=== PATIENT | male | born 1950 | race Caucasian/White ===

== ENCOUNTER 2017-04-27 14:21 | Emergency (ER) | payer OTHER ==
[~2017-04-27] VITALS: Ht 190.5 cm; Wt 77.1 kg
[~2017-04-27 14:21] MED LIST: ALBU90OI INH; ALBU90OI6 INH; ALBU90OI61 INH; AMIT25; AMOCLA875 PO; AMOX500 PO; ASPI81EC PO; AZIT250 PO; Augmentin 875-1 EACH PO; BENZ100A PO; BP MED; Bactrim Ds Tab1 EACH PO; CLIN150 PO; CYCL10 PO; Cleocin HCl300 MG PO; DIAZ10; DIAZ5 PO; DOXY100 PO; Esgic Tablet1 EACH PO; FISH1000 PO; FLUT110OIA IH; HIGH BLOOD PRESSURE; HYDACE10B PO; HYDACE5 PO; HYDCHL25; HYDROCHLOROTHIAZIDE; IBUP400 PO; IBUP600 PO; IBUP800 PO; INHALERS; INSLIS75I; KETO10 PO; Keflex500 MG PO; LIDO2L MM; LISI20; LISI20 PO; LISI5 PO; METCAR500 PO; METH40; METH5 PO; METO25ER; METOPROLOL; MULVITMINF PO; NAPR500 PO; Norco 5-325 Ta1 EACH PO; OMEP20ER; OMEP20ER PO; OMEPRAZOLE MAGN20 MG PO; OXYACE5T PO; OXYC10ER PO; OXYC30 PO; OXYC5 PO; OXYCODONE HCL; Omeprazole20 M1 PO; PENVK500 PO; PRED20 PO; PROM25 PO; Percocet 5-3251 EACH PO; Prednisone20 MG PO; Prinivil10 MG PO; Prinivil5 MG PO; RXHYDACE PO; RXOXYACE PO; RXSULTRIDS PO; Robaxin500 MG PO; STOMACH PILL; SULTRIDS PO; TRAM50 PO; Ultram50 MG PO; Veetids 500500 MG PO; Zithromax250 MG PO; Zofran Odt4 MG PO; Zofran Odt4 MG SL; [UNRECOGNIZED DRUG - OTHER]; [UNRECOGNIZED DRUG - REMARK]; [UNRECOGNIZED DRUG - REMARK]
[2017-04-27] MEDS ORDERED: IBUP400 PO (17:05)
[2018-01-26] MEDS ORDERED: METH40 PO (12:43)
== END 2017-04-27 17:13 | disposition home or self-care (01) ==
LOC: ER 14:21
DX: S60.031A Contusion of right middle finger without damage to nail, initial encounter (principal); J44.9 Chronic obstructive pulmonary disease, unspecified; F17.210 Nicotine dependence, cigarettes, uncomplicated; V19.40XA Pedal cycle driver injured in collision with unspecified motor vehicles in traffic accident, initial encounter
CPT/HCPCS: 73130; 99283

== ENCOUNTER 2017-06-14 01:54 | Emergency (ER) | payer OTHER ==
[~2017-06-14] VITALS: Ht 190.5 cm; Wt 77.1 kg
[2017-06-14] MEDS ORDERED: CEPH500 PO (05:21)
== END 2017-06-14 05:28 | disposition home or self-care (01) ==
LOC: ER 01:54
DX: S81.011A Laceration without foreign body, right knee, initial encounter (principal); J44.9 Chronic obstructive pulmonary disease, unspecified; F17.210 Nicotine dependence, cigarettes, uncomplicated; V86.96XA Unspecified occupant of dirt bike or motor/cross bike injured in nontraffic accident, initial encounter
CPT/HCPCS: 73564; 99283

== ENCOUNTER 2017-11-13 18:44 | Emergency (ER) | payer OTHER ==
[~2017-11-13] VITALS: Ht 190.5 cm; Wt 80.7 kg
[~2017-11-13 18:44] MED LIST changes: +CEPH500 PO
[2017-11-13 23:28] LABS: BASOPHILS ABSOLUTE AUTO 0.05 K/mm3 (0.00-0.23); BASOPHILS PERCENT AUTO 1 % (0-2); EOSINOPHILS ABSOLUTE AUTO 0.07 K/mm3 (0.00-0.68); EOSINOPHILS PERCENT AUTO 1 % (0-6); Hematocrit 39.9 % (37.0-53.0); Hemoglobin 13.3 g/dL (13.5-17.5); IMMATURE GRAN ABSOLUTE AUTO 0.01 K/mm3 (0.00-0.10); IMMATURE GRAN PERCENT AUTO 0 % (0-1); LYMPHOCYTES PERCENT AUTO 31 % (21-46); MONOCYTES ABSOLUTE AUTO 0.97 K/mm3 (0.16-1.47); MONOCYTES PERCENT AUTO 14 % (4-13); Mean Corpuscular HGB 32.2 pg (26.0-34.0); Mean Corpuscular HGB Conc 33.3 g/dL (31.5-36.5); Mean Corpuscular Volume 97 fL (80-100); NEUTROPHILS ABSOLUTE AUTO 3.71 K/mm3 (1.96-9.15); NEUTROPHILS PERCENT AUTO 53 % (41-73); Platelet Count 204 K/mm3 (150-400); RDW Coefficient Variation 11.9 % (11.7-14.2); RDW Standard Deviation 42.6 fL (35.1-46.3); Red Blood Cell Count 4.13 M/mm3 (4.30-5.90); White Blood Cell Count 7.01 K/mm3 (4.00-11.30)
[2017-11-13 23:59] LABS: Alanine Aminotransfer (ALT/SGP 35 U/L (12-78); Albumin, Blood 3.3 g/dL (3.4-5.0); Albumin/Globulin Ratio 0.8 (0.8-1.8); Alk Phos 87 U/L (50-136); Anion Gap 7 mmol/L (6-16); Aspartate Aminotrans (AST/SGOT 31 U/L (12-37); Bilirubin, Total 0.7 mg/dL (0.1-1.0); Blood Urea Nitrogen 8 mg/dL (8-24); Bun/Creatinine Ratio 14.9 (12.0-20.0); CO2, Blood 27 mmol/L (21-32); Calcium, Blood 8.1 mg/dL (8.5-10.1); Chloride, Blood 100 mmol/L (98-108); Creatinine, Blood 0.54 mg/dL (0.60-1.20); Globulin, Blood 4.2 g/dL (2.2-4.0); Glomerular Filtration Rate >60 (60-); Glucose, Blood 109 mg/dL (70-99); Potassium, Blood 3.9 mmol/L (3.5-5.5); Sodium, Blood 134 mmol/L (136-145); Total Protein, Blood 7.5 g/dL (6.4-8.2); Troponin I <0.015 ng/mL (0.000-0.040)
[2017-11-14] MEDS ORDERED: IBUP400 PO (00:31)
== END 2017-11-14 00:44 | disposition home or self-care (01) ==
LOC: ER 18:44
PROVIDERS: Emergency Medicine
DX: M54.6 Pain in thoracic spine (principal); J44.9 Chronic obstructive pulmonary disease, unspecified; F17.210 Nicotine dependence, cigarettes, uncomplicated
CPT/HCPCS: 36415; 71046; 80053; 84484; 85025; 93005; 93010; 96372; 99283-25; J1885

== ENCOUNTER 2018-12-30 18:15 | Emergency (ER) | payer MEDICARE, OTHER ==
[~2018-12-30] VITALS: Ht 190.5 cm; Wt 77.1 kg
[~2018-12-30 18:15] MED LIST changes: +BUDE10.22 INH; +METH40 PO; +Naprosyn500 MG PO; +OMEPRAZOLE20 MG PO
[2018-12-30] MEDS ORDERED: Ventolin/Prove6.7 GM (18:39)
[2018-12-30] MEDS ORDERED: Monodox100 MG PO (19:25)
== END 2018-12-30 19:46 | disposition home or self-care (01) ==
LOC: ER 18:15
DX: L03.113 Cellulitis of right upper limb (principal); I10 Essential (primary) hypertension; F17.210 Nicotine dependence, cigarettes, uncomplicated; Z79.899 Other long term (current) drug therapy
CPT/HCPCS: 99283

== ENCOUNTER 2019-01-01 15:48 | Emergency (ER) | payer MEDICARE, OTHER ==
[~2019-01-01] VITALS: Ht 190.5 cm; Wt 77.1 kg
[~2019-01-01 15:48] MED LIST changes: +Monodox100 MG PO; +Ventolin/Prove6.7 GM
[2019-01-01] MEDS ORDERED: MONDOXYNE NL100 MG PO (15:57)
== END 2019-01-01 16:31 | disposition home or self-care (01) ==
LOC: ER 15:48
DX: L03.113 Cellulitis of right upper limb (principal); I10 Essential (primary) hypertension; F17.210 Nicotine dependence, cigarettes, uncomplicated; Z76.0 Encounter for issue of repeat prescription
CPT/HCPCS: 99282

== ENCOUNTER 2019-01-14 17:20 | Emergency (ER) | payer MEDICARE, OTHER ==
[~2019-01-14] VITALS: Ht 182.9 cm; Wt 81.7 kg
[~2019-01-14 17:20] MED LIST changes: +MONDOXYNE NL100 MG PO
[2019-01-14] MEDS ORDERED: Cleocin HCl300 MG PO (18:14)
== END 2019-01-14 18:42 | disposition home or self-care (01) ==
LOC: ER 17:20
DX: L03.113 Cellulitis of right upper limb (principal); I10 Essential (primary) hypertension; J44.9 Chronic obstructive pulmonary disease, unspecified; F17.210 Nicotine dependence, cigarettes, uncomplicated; Z59.0 Homelessness
CPT/HCPCS: 96372; 99283-25

== ENCOUNTER 2019-02-21 12:22 | Emergency (ER) | payer MEDICARE, OTHER ==
[~2019-02-21] VITALS: Ht 190.5 cm; Wt 77.1 kg
[2019-02-21 13:42] LABS: Influenza A Negative (NEGATIVE); Influenza B Negative (NEGATIVE)
== END 2019-02-21 14:08 | disposition home or self-care (01) ==
LOC: ER 12:22
PROVIDERS: Physician Assistant
DX: J06.9 Acute upper respiratory infection, unspecified (principal); Z79.899 Other long term (current) drug therapy; J44.9 Chronic obstructive pulmonary disease, unspecified; I10 Essential (primary) hypertension; F17.210 Nicotine dependence, cigarettes, uncomplicated
CPT/HCPCS: 71046; 87081; 87430; 87804; 99283-25

== ENCOUNTER 2019-04-04 16:08 | Emergency (ER) | payer MEDICARE, OTHER ==
[~2019-04-04] VITALS: Ht 190.5 cm; Wt 77.1 kg
[2019-04-04 17:22] LABS: BASOPHILS ABSOLUTE AUTO 0.08 K/mm3 (0.00-0.23); BASOPHILS PERCENT AUTO 1 % (0-2); EOSINOPHILS ABSOLUTE AUTO 0.08 K/mm3 (0.00-0.68); EOSINOPHILS PERCENT AUTO 1 % (0-6); Hematocrit 39.8 % (37.0-53.0); Hemoglobin 13.1 g/dL (13.5-17.5); IMMATURE GRAN ABSOLUTE AUTO 0.01 K/mm3 (0.00-0.10); IMMATURE GRAN PERCENT AUTO 0 % (0-1); LYMPHOCYTES ABSOLUTE AUTO 1.68 K/mm3 (0.84-5.20); LYMPHOCYTES PERCENT AUTO 21 % (21-46); MONOCYTES ABSOLUTE AUTO 0.73 K/mm3 (0.16-1.47); MONOCYTES PERCENT AUTO 9 % (4-13); Mean Corpuscular HGB 30.9 pg (26.0-34.0); Mean Corpuscular HGB Conc 32.9 g/dL (31.5-36.5); Mean Corpuscular Volume 94 fL (80-100); Mean Platelet Volume 9.3 fL (9.1-12.4); NEUTROPHILS ABSOLUTE AUTO 5.49 K/mm3 (1.96-9.15); NEUTROPHILS PERCENT AUTO 68 % (41-73); Platelet Count 320 K/mm3 (150-400); RDW Coefficient Variation 12.2 % (11.7-14.2); RDW Standard Deviation 42.2 fL (35.1-46.3); Red Blood Cell Count 4.24 M/mm3 (4.30-5.90); White Blood Cell Count 8.07 K/mm3 (4.00-11.30)
[2019-04-04 17:39] LABS: Alanine Aminotransfer (ALT/SGP 48 U/L (12-78); Albumin, Blood 3.5 g/dL (3.4-5.0); Albumin/Globulin Ratio 0.8 (0.8-1.8); Alk Phos 126 U/L (50-136); Anion Gap 6 mmol/L (6-16); Aspartate Aminotrans (AST/SGOT 50 U/L (12-37); Bilirubin, Total 0.4 mg/dL (0.1-1.0); Blood Urea Nitrogen 21 mg/dL (8-24); Bun/Creatinine Ratio 21.5 (12.0-20.0); CO2, Blood 23 mmol/L (21-32); Calcium, Blood 8.6 mg/dL (8.5-10.1); Chloride, Blood 103 mmol/L (98-108); Creatinine, Blood 0.98 mg/dL (0.60-1.20); Globulin, Blood 4.3 g/dL (2.2-4.0); Glomerular Filtration Rate >60 (60-); Glucose, Blood 106 mg/dL (70-99); Potassium, Blood 4.1 mmol/L (3.5-5.5); Sodium, Blood 132 mmol/L (136-145); Total Protein, Blood 7.8 g/dL (6.4-8.2)
[2019-04-04 20:40] LABS: Adenovirus F 40/41 Not Detected (NOT DETECT); Astrovirus Not Detected (NOT DETECT); Campylobacter Sp Not Detected (NOT DETECT); Cryptosporidium Not Detected (NOT DETECT); Cyclospora Cayetanensis Not Detected (NOT DETECT); E. Coli O157 Not Detected (NOT DETECT); Entamoeba Histolytica Not Detected (NOT DETECT); Enteroaggregative E. coli-EAEC Not Detected (NOT DETECT); Enteropathogenic E. coli-EPEC Not Detected (NOT DETECT); Enterotoxigenic E. coli-ETEC Not Detected (NOT DETECT); Giardia Lamblia Not Detected (NOT DETECT); Norovirus GI/GII Not Detected (NOT DETECT); Plesiomonas Shigelloides Not Detected (NOT DETECT); Rotavirus A Not Detected (NOT DETECT); Salmonella Sp Not Detected (NOT DETECT); Sapovirus Not Detected (NOT DETECT); Shiga Toxin-prod E. coli-STEC Not Detected (NOT DETECT); Shigella/Enteroin E. coli-EIEC Not Detected (NOT DETECT); Vibrio Cholerae Not Detected (NOT DETECT); Vibrio Sp Not Detected (NOT DETECT); Yersinia Enterocolitica Not Detected (NOT DETECT)
== END 2019-04-04 18:37 | disposition home or self-care (01) ==
LOC: ER 16:08
PROVIDERS: Emergency Medicine
DX: R19.7 Diarrhea, unspecified (principal); M54.2 Cervicalgia; F17.210 Nicotine dependence, cigarettes, uncomplicated; J44.9 Chronic obstructive pulmonary disease, unspecified; I10 Essential (primary) hypertension
CPT/HCPCS: 0097U; 36415; 80053; 85025; 99284

== ENCOUNTER 2019-06-19 02:20 | Emergency (ER) | payer MEDICARE, OTHER ==
[~2019-06-19] VITALS: Ht 190.5 cm; Wt 79.4 kg
[~2019-06-19 02:20] MED LIST changes: +LOPE2C PO
[2019-06-19 03:07] LABS: BASOPHILS ABSOLUTE AUTO 0.06 K/mm3 (0.00-0.23); BASOPHILS PERCENT AUTO 1 % (0-2); EOSINOPHILS ABSOLUTE AUTO 0.17 K/mm3 (0.00-0.68); EOSINOPHILS PERCENT AUTO 2 % (0-6); Hematocrit 37.9 % (37.0-53.0); Hemoglobin 12.1 g/dL (13.5-17.5); IMMATURE GRAN ABSOLUTE AUTO 0.02 K/mm3 (0.00-0.10); IMMATURE GRAN PERCENT AUTO 0 % (0-1); LYMPHOCYTES ABSOLUTE AUTO 1.68 K/mm3 (0.84-5.20); LYMPHOCYTES PERCENT AUTO 23 % (21-46); MONOCYTES ABSOLUTE AUTO 0.98 K/mm3 (0.16-1.47); MONOCYTES PERCENT AUTO 13 % (4-13); Mean Corpuscular HGB 29.6 pg (26.0-34.0); Mean Corpuscular HGB Conc 31.9 g/dL (31.5-36.5); Mean Corpuscular Volume 93 fL (80-100); Mean Platelet Volume 9.2 fL (9.1-12.4); NEUTROPHILS ABSOLUTE AUTO 4.38 K/mm3 (1.96-9.15); NEUTROPHILS PERCENT AUTO 60 % (41-73); Platelet Count 235 K/mm3 (150-400); RDW Coefficient Variation 13.6 % (11.7-14.2); RDW Standard Deviation 46.4 fL (35.1-46.3); Red Blood Cell Count 4.09 M/mm3 (4.30-5.90); White Blood Cell Count 7.29 K/mm3 (4.00-11.30)
[2019-06-19] MEDS ORDERED: MUPIROCIN15 GM TOP (04:12)
== END 2019-06-19 04:34 | disposition home or self-care (01) ==
LOC: ER 02:20
PROVIDERS: Emergency Medicine
DX: L01.00 Impetigo, unspecified (principal); J34.89 Other specified disorders of nose and nasal sinuses; I10 Essential (primary) hypertension; J44.9 Chronic obstructive pulmonary disease, unspecified; M54.2 Cervicalgia; G89.29 Other chronic pain; F17.210 Nicotine dependence, cigarettes, uncomplicated; Z86.19 Personal history of other infectious and parasitic diseases
CPT/HCPCS: 36415; 70487; 83605; 85025; 96365-59; 99284-25; Q9967

== ENCOUNTER 2019-10-21 17:06 | Inpatient (IN) | payer MEDICARE, OTHER ==
[~2019-10-21] VITALS: Ht 190.5 cm; Wt 81.7 kg
[~2019-10-21 17:06] MED LIST changes: +ASPI325 PO; +MUPIROCIN15 GM TOP
[2019-10-22 05:56] LABS: BASOPHILS PERCENT AUTO 1 % (0-2); EOSINOPHILS ABSOLUTE AUTO 0.21 K/mm3 (0.00-0.68); EOSINOPHILS PERCENT AUTO 2 % (0-6); IMMATURE GRAN ABSOLUTE AUTO 0.03 K/mm3 (0.00-0.10); IMMATURE GRAN PERCENT AUTO 0 % (0-1); LYMPHOCYTES ABSOLUTE AUTO 1.37 K/mm3 (0.84-5.20); LYMPHOCYTES PERCENT AUTO 14 % (21-46); MONOCYTES ABSOLUTE AUTO 0.86 K/mm3 (0.16-1.47); MONOCYTES PERCENT AUTO 9 % (4-13); Mean Corpuscular HGB 30.3 pg (26.0-34.0); Mean Corpuscular HGB Conc 31.7 g/dL (31.5-36.5); Mean Corpuscular Volume 96 fL (80-100); Mean Platelet Volume 9.8 fL (9.1-12.4); NEUTROPHILS ABSOLUTE AUTO 7.19 K/mm3 (1.96-9.15); NEUTROPHILS PERCENT AUTO 74 % (41-73); Platelet Count 313 K/mm3 (150-400); RDW Coefficient Variation 13.2 % (11.7-14.2); RDW Standard Deviation 46.9 fL (35.1-46.3); Red Blood Cell Count 4.29 M/mm3 (4.30-5.90); White Blood Cell Count 9.76 K/mm3 (4.00-11.30)
[2019-10-22 06:25] LABS: Alanine Aminotransfer (ALT/SGP 39 U/L (12-78); Albumin, Blood 2.7 g/dL (3.4-5.0); Albumin/Globulin Ratio 0.6 (0.8-1.8); Alk Phos 117 U/L (50-136); Anion Gap 5 mmol/L (6-16); Aspartate Aminotrans (AST/SGOT 51 U/L (12-37); Bilirubin, Total 0.2 mg/dL (0.1-1.0); Blood Urea Nitrogen 15 mg/dL (8-24); Bun/Creatinine Ratio 21.5 (12.0-20.0); CO2, Blood 29 mmol/L (21-32); Calcium, Blood 8.6 mg/dL (8.5-10.1); Chloride, Blood 102 mmol/L (98-108); Globulin, Blood 4.5 g/dL (2.2-4.0); Glomerular Filtration Rate >60 (60-); Glucose, Blood 90 mg/dL (70-99); Potassium, Blood 4.6 mmol/L (3.5-5.5); Sodium, Blood 136 mmol/L (136-145); Total Protein, Blood 7.2 g/dL (6.4-8.2)
[2019-10-29] MEDS ORDERED: HYDROCODONE-AC1 EAC7 PO (10:18)
[2019-10-29] MEDS ORDERED: CHLORASEPTIC177 ML MM (10:20)
== END 2019-10-29 15:07 | disposition home or self-care (01) | DRG 918 ==
LOC: ER 17:06 → MEDS 17:07
PROVIDERS: ADMIT Internal Medicine
PROC: 3E0G76Z Introduction of Nutritional Substance into Upper GI, Via Natural or Artificial Opening (ICD-10-PCS; principal; 2019-10-23)
DX: T65.891A Toxic effect of other specified substances, accidental (unintentional), initial encounter (principal); T28.1XXA Burn of esophagus, initial encounter; G47.00 Insomnia, unspecified; F17.210 Nicotine dependence, cigarettes, uncomplicated; I10 Essential (primary) hypertension; J44.9 Chronic obstructive pulmonary disease, unspecified; K21.9 Gastro-esophageal reflux disease without esophagitis; Z59.0 Homelessness; K22.2 Esophageal obstruction; R13.10 Dysphagia, unspecified; B19.20 Unspecified viral hepatitis C without hepatic coma
CPT/HCPCS: 80053; 85025; 96374; 96375; 99284-25; C9113; G0378; J1650; J2405; J3010; J7030

== ENCOUNTER 2019-11-09 14:17 | Emergency (ER) | payer MEDICARE, OTHER ==
[~2019-11-09] VITALS: Ht 190.5 cm; Wt 907.2 kg
[~2019-11-09 14:17] MED LIST changes: +CHLORASEPTIC177 ML MM; +HYDROCODONE-AC1 EAC7 PO
== END 2019-11-09 15:14 | disposition home or self-care (01) ==
LOC: ER 14:17
DX: K94.29 Other complications of gastrostomy (principal); L25.9 Unspecified contact dermatitis, unspecified cause; Z59.0 Homelessness
CPT/HCPCS: 99282

== ENCOUNTER 2019-11-27 00:13 | Emergency (ER) | payer MEDICARE, OTHER ==
[~2019-11-27] VITALS: Ht 190.5 cm; Wt 70.8 kg
[2019-11-27 02:47] LABS: Alanine Aminotransfer (ALT/SGP 32 U/L (12-78); Albumin, Blood 3.5 g/dL (3.4-5.0); Albumin/Globulin Ratio 0.8 (0.8-1.8); Alk Phos 124 U/L (50-136); Anion Gap 7 mmol/L (6-16); Aspartate Aminotrans (AST/SGOT 66 U/L (12-37); Bilirubin, Total 0.3 mg/dL (0.1-1.0); Blood Urea Nitrogen 12 mg/dL (8-24); Bun/Creatinine Ratio 19.1 (12.0-20.0); CO2, Blood 23 mmol/L (21-32); Calcium, Blood 8.8 mg/dL (8.5-10.1); Chloride, Blood 106 mmol/L (98-108); Creatinine, Blood 0.63 mg/dL (0.60-1.20); Globulin, Blood 4.4 g/dL (2.2-4.0); Glomerular Filtration Rate >60 (60-); Glucose, Blood 129 mg/dL (70-99); Potassium, Blood 4.1 mmol/L (3.5-5.5); Sodium, Blood 136 mmol/L (136-145); Total Protein, Blood 7.9 g/dL (6.4-8.2)
[2019-11-27 02:58] LABS: BASOPHILS ABSOLUTE AUTO 0.05 K/mm3 (0.00-0.23); BASOPHILS PERCENT AUTO 1 % (0-2); EOSINOPHILS ABSOLUTE AUTO 0.18 K/mm3 (0.00-0.68); EOSINOPHILS PERCENT AUTO 2 % (0-6); Hematocrit 37.8 % (37.0-53.0); IMMATURE GRAN ABSOLUTE AUTO 0.02 K/mm3 (0.00-0.10); IMMATURE GRAN PERCENT AUTO 0 % (0-1); LYMPHOCYTES ABSOLUTE AUTO 1.34 K/mm3 (0.84-5.20); LYMPHOCYTES PERCENT AUTO 15 % (21-46); MONOCYTES ABSOLUTE AUTO 0.84 K/mm3 (0.16-1.47); MONOCYTES PERCENT AUTO 9 % (4-13); Mean Corpuscular HGB 30.3 pg (26.0-34.0); Mean Corpuscular HGB Conc 31.7 g/dL (31.5-36.5); Mean Corpuscular Volume 96 fL (80-100); Mean Platelet Volume 9.4 fL (9.1-12.4); NEUTROPHILS ABSOLUTE AUTO 6.65 K/mm3 (1.96-9.15); NEUTROPHILS PERCENT AUTO 73 % (41-73); Platelet Count 228 K/mm3 (150-400); RDW Coefficient Variation 13.4 % (11.7-14.2); RDW Standard Deviation 47.4 fL (35.1-46.3); Red Blood Cell Count 3.96 M/mm3 (4.30-5.90); White Blood Cell Count 9.08 K/mm3 (4.00-11.30)
[2019-11-30] MEDS ORDERED: HYDR1TAB94 PO (02:04)
[2019-11-30] MEDS ORDERED: KEFLEX500 MG PO (02:04)
== END 2019-11-27 04:39 | disposition home or self-care (01) ==
LOC: ER 00:13
PROVIDERS: Emergency Medicine
DX: R10.84 Generalized abdominal pain (principal); I10 Essential (primary) hypertension; J44.9 Chronic obstructive pulmonary disease, unspecified; F17.200 Nicotine dependence, unspecified, uncomplicated; Z59.0 Homelessness; Z93.1 Gastrostomy status
CPT/HCPCS: 74176; 80053; 83690; 85025; 99284-25

== ENCOUNTER 2019-12-18 17:31 | Emergency (ER) | payer MEDICARE, OTHER ==
[~2019-12-18] VITALS: Ht 190.5 cm; Wt 72.6 kg
[~2019-12-18 17:31] MED LIST changes: +HYDR1TAB94 PO; +KEFLEX500 MG PO
[2019-12-18 23:13] LABS: BASOPHILS ABSOLUTE AUTO 0.06 K/mm3 (0.00-0.23); BASOPHILS PERCENT AUTO 1 % (0-2); EOSINOPHILS ABSOLUTE AUTO 0.07 K/mm3 (0.00-0.68); EOSINOPHILS PERCENT AUTO 1 % (0-6); Hematocrit 39.4 % (37.0-53.0); Hemoglobin 12.8 g/dL (13.5-17.5); IMMATURE GRAN ABSOLUTE AUTO 0.04 K/mm3 (0.00-0.10); IMMATURE GRAN PERCENT AUTO 0 % (0-1); LYMPHOCYTES ABSOLUTE AUTO 1.31 K/mm3 (0.84-5.20); LYMPHOCYTES PERCENT AUTO 13 % (21-46); MONOCYTES ABSOLUTE AUTO 0.91 K/mm3 (0.16-1.47); MONOCYTES PERCENT AUTO 9 % (4-13); Mean Corpuscular HGB 30.7 pg (26.0-34.0); Mean Corpuscular HGB Conc 32.5 g/dL (31.5-36.5); Mean Corpuscular Volume 95 fL (80-100); Mean Platelet Volume 9.2 fL (9.1-12.4); NEUTROPHILS ABSOLUTE AUTO 7.77 K/mm3 (1.96-9.15); NEUTROPHILS PERCENT AUTO 76 % (41-73); Platelet Count 288 K/mm3 (150-400); RDW Standard Deviation 45.1 fL (35.1-46.3); Red Blood Cell Count 4.17 M/mm3 (4.30-5.90); White Blood Cell Count 10.16 K/mm3 (4.00-11.30)
[2019-12-18 23:31] LABS: Alanine Aminotransfer (ALT/SGP 37 U/L (12-78); Albumin, Blood 3.5 g/dL (3.4-5.0); Albumin/Globulin Ratio 0.8 (0.8-1.8); Alk Phos 170 U/L (50-136); Anion Gap 7 mmol/L (6-16); Aspartate Aminotrans (AST/SGOT 75 U/L (12-37); Bilirubin, Total 0.5 mg/dL (0.1-1.0); Blood Urea Nitrogen 15 mg/dL (8-24); Bun/Creatinine Ratio 23.3 (12.0-20.0); CO2, Blood 24 mmol/L (21-32); Calcium, Blood 9.2 mg/dL (8.5-10.1); Chloride, Blood 105 mmol/L (98-108); Creatinine, Blood 0.64 mg/dL (0.60-1.20); Globulin, Blood 4.6 g/dL (2.2-4.0); Glomerular Filtration Rate >60 (60-); Glucose, Blood 82 mg/dL (70-99); Potassium, Blood 3.9 mmol/L (3.5-5.5); Sodium, Blood 136 mmol/L (136-145); Total Protein, Blood 8.1 g/dL (6.4-8.2)
== END 2019-12-19 01:02 | disposition home or self-care (01) ==
LOC: ER 17:31
PROVIDERS: Student in an Organized Health Care Education/Training Program
DX: R10.13 Epigastric pain (principal); I10 Essential (primary) hypertension; J44.9 Chronic obstructive pulmonary disease, unspecified; F17.290 Nicotine dependence, other tobacco product, uncomplicated; Z93.1 Gastrostomy status; Z59.0 Homelessness
CPT/HCPCS: 36415; 74022; 74177; 80053; 83690; 85025; 96360; 99284-25; J7030; Q9967

== ENCOUNTER 2020-02-13 12:44 | Emergency (ER) | payer MEDICARE, OTHER ==
[~2020-02-13] VITALS: Ht 190.5 cm; Wt 77.1 kg
[2020-02-13 16:46] LABS: BASOPHILS PERCENT AUTO 1 % (0-2); EOSINOPHILS ABSOLUTE AUTO 0.11 K/mm3 (0.00-0.68); EOSINOPHILS PERCENT AUTO 1 % (0-6); Hematocrit 42.6 % (37.0-53.0); Hemoglobin 13.2 g/dL (13.5-17.5); IMMATURE GRAN ABSOLUTE AUTO 0.09 K/mm3 (0.00-0.10); IMMATURE GRAN PERCENT AUTO 1 % (0-1); LYMPHOCYTES ABSOLUTE AUTO 1.31 K/mm3 (0.84-5.20); LYMPHOCYTES PERCENT AUTO 10 % (21-46); MONOCYTES ABSOLUTE AUTO 1.24 K/mm3 (0.16-1.47); MONOCYTES PERCENT AUTO 9 % (4-13); Mean Corpuscular HGB 29.6 pg (26.0-34.0); Mean Corpuscular Volume 96 fL (80-100); Mean Platelet Volume 8.9 fL (9.1-12.4); NEUTROPHILS ABSOLUTE AUTO 10.81 K/mm3 (1.96-9.15); NEUTROPHILS PERCENT AUTO 79 % (41-73); Platelet Count 272 K/mm3 (150-400); RDW Coefficient Variation 12.7 % (11.7-14.2); RDW Standard Deviation 44.5 fL (35.1-46.3); Red Blood Cell Count 4.46 M/mm3 (4.30-5.90); White Blood Cell Count 13.66 K/mm3 (4.00-11.30)
[2020-02-13 17:03] LABS: Alanine Aminotransfer (ALT/SGP 41 U/L (12-78); Albumin, Blood 3.2 g/dL (3.4-5.0); Albumin/Globulin Ratio 0.7 (0.8-1.8); Alk Phos 132 U/L (50-136); Anion Gap 7 mmol/L (6-16); Aspartate Aminotrans (AST/SGOT 81 U/L (12-37); Bilirubin, Total 0.3 mg/dL (0.1-1.0); Blood Urea Nitrogen 15 mg/dL (8-24); Bun/Creatinine Ratio 25.5 (12.0-20.0); CO2, Blood 26 mmol/L (21-32); Calcium, Blood 8.8 mg/dL (8.5-10.1); Chloride, Blood 100 mmol/L (98-108); Creatinine, Blood 0.59 mg/dL (0.60-1.20); Globulin, Blood 4.5 g/dL (2.2-4.0); Glomerular Filtration Rate >60 (60-); Glucose, Blood 78 mg/dL (70-99); Potassium, Blood 3.5 mmol/L (3.5-5.5); Sodium, Blood 133 mmol/L (136-145); Total Protein, Blood 7.7 g/dL (6.4-8.2)
[2020-02-13] MEDS ORDERED: PRINIVIL10 MG PO (19:02)
== END 2020-02-13 20:50 | disposition home or self-care (01) ==
LOC: ER 12:44
PROVIDERS: Physician Assistant
DX: G56.82 Other specified mononeuropathies of left upper limb (principal); C77.9 Secondary and unspecified malignant neoplasm of lymph node, unspecified; I10 Essential (primary) hypertension; J44.9 Chronic obstructive pulmonary disease, unspecified; F17.200 Nicotine dependence, unspecified, uncomplicated; Z79.899 Other long term (current) drug therapy
CPT/HCPCS: 36415; 70450; 70496; 70498; 71250; 80053; 85025; 93005; 93010; 99285-25; A9270; A9270-GY; Q9967

== ENCOUNTER 2020-02-22 18:20 | Emergency (ER) | payer MEDICARE, OTHER ==
[~2020-02-22] VITALS: Ht 190.5 cm; Wt 77.1 kg
[~2020-02-22 18:20] MED LIST changes: +PRINIVIL10 MG PO
[2020-02-22 19:20] LABS: Chloride (POC) 100 mmol/L (98-108); Creatinine (POC) 0.5 mg/dL (0.8-1.3); Glucose (ISTAT POC) 99 mg/dL (70-99); Hemoglobin (POC) 11.6 g/dL (13.5-17.5); Potassium (POC) 4.1 mmol/L (3.5-5.5); Sodium (POC) 132 mmol/L (135-148); Total CO2 (POC) 21 mmol/L (21-32)
== END 2020-02-22 20:04 | disposition home or self-care (01) ==
LOC: ER 18:20
PROVIDERS: Student in an Organized Health Care Education/Training Program
DX: R10.84 Generalized abdominal pain (principal); R19.7 Diarrhea, unspecified; J44.9 Chronic obstructive pulmonary disease, unspecified; I10 Essential (primary) hypertension; F17.200 Nicotine dependence, unspecified, uncomplicated; Z79.899 Other long term (current) drug therapy; Z59.0 Homelessness
CPT/HCPCS: 36415; 80047; 85014; 99284

== ENCOUNTER 2020-03-11 17:52 | Emergency (ER) | payer MEDICARE, OTHER ==
[~2020-03-11] VITALS: Ht 190.5 cm; Wt 77.1 kg
== END 2020-03-11 20:12 | disposition home or self-care (01) ==
LOC: ER 17:52
DX: K94.23 Gastrostomy malfunction (principal); I10 Essential (primary) hypertension; J44.9 Chronic obstructive pulmonary disease, unspecified; F17.200 Nicotine dependence, unspecified, uncomplicated; Z79.899 Other long term (current) drug therapy
CPT/HCPCS: 99282

== ENCOUNTER 2020-03-31 22:58 | Emergency (ER) | payer MEDICARE, OTHER ==
[~2020-03-31] VITALS: Ht 180.3 cm; Wt 54.4 kg
[2020-04-01 00:05] LABS: BASOPHILS ABSOLUTE AUTO 0.05 K/mm3 (0.00-0.23); BASOPHILS PERCENT AUTO 1 % (0-2); EOSINOPHILS ABSOLUTE AUTO 0.02 K/mm3 (0.00-0.68); EOSINOPHILS PERCENT AUTO 0 % (0-6); Hematocrit 37.3 % (37.0-53.0); Hemoglobin 12.2 g/dL (13.5-17.5); IMMATURE GRAN ABSOLUTE AUTO 0.05 K/mm3 (0.00-0.10); IMMATURE GRAN PERCENT AUTO 1 % (0-1); LYMPHOCYTES ABSOLUTE AUTO 1.03 K/mm3 (0.84-5.20); LYMPHOCYTES PERCENT AUTO 10 % (21-46); MONOCYTES PERCENT AUTO 8 % (4-13); Mean Corpuscular HGB Conc 32.7 g/dL (31.5-36.5); Mean Corpuscular Volume 89 fL (80-100); NEUTROPHILS ABSOLUTE AUTO 8.32 K/mm3 (1.96-9.15); NEUTROPHILS PERCENT AUTO 81 % (41-73); RDW Coefficient Variation 13.5 % (11.7-14.2); RDW Standard Deviation 43.8 fL (35.1-46.3); White Blood Cell Count 10.27 K/mm3 (4.00-11.30)
[2020-04-01 00:06] LABS: Mean Platelet Volume 9.4 fL (9.1-12.4); Platelet Count 260 K/mm3 (150-400)
[2020-04-01 00:13] LABS: Alanine Aminotransfer (ALT/SGP 25 U/L (12-78); Albumin, Blood 2.6 g/dL (3.4-5.0); Albumin/Globulin Ratio 0.6 (0.8-1.8); Alk Phos 157 U/L (50-136); Anion Gap 8 mmol/L (6-16); Aspartate Aminotrans (AST/SGOT 59 U/L (12-37); Bilirubin, Total 0.4 mg/dL (0.1-1.0); Blood Urea Nitrogen 14 mg/dL (8-24); Bun/Creatinine Ratio 22.8 (12.0-20.0); CO2, Blood 29 mmol/L (21-32); Calcium, Blood 8.5 mg/dL (8.5-10.1); Chloride, Blood 98 mmol/L (98-108); Creatinine, Blood 0.61 mg/dL (0.60-1.20); Globulin, Blood 4.6 g/dL (2.2-4.0); Glomerular Filtration Rate >60 (60-); Glucose, Blood 116 mg/dL (70-99); Potassium, Blood 3.6 mmol/L (3.5-5.5); Sodium, Blood 135 mmol/L (136-145); Total Protein, Blood 7.2 g/dL (6.4-8.2)
== END 2020-04-01 01:21 | disposition home or self-care (01) ==
LOC: ER 22:58
PROVIDERS: Emergency Medicine
DX: R51.9 Headache, unspecified (principal); R42 Dizziness and giddiness; R53.1 Weakness; R10.9 Unspecified abdominal pain; J44.9 Chronic obstructive pulmonary disease, unspecified; I10 Essential (primary) hypertension; F17.200 Nicotine dependence, unspecified, uncomplicated; Z59.0 Homelessness; Z79.899 Other long term (current) drug therapy
CPT/HCPCS: 36415; 80053; 83690; 85025; 96361; 96374; 99284-25; J1885; J7030

== ENCOUNTER 2020-04-09 23:43 | Emergency (ER) | payer MEDICARE, OTHER ==
[~2020-04-09] VITALS: Ht 177.8 cm; Wt 59.0 kg
[2020-04-09] MEDS ORDERED: ATHLETE'S FOO35.4 GM TP (23:57)
== END 2020-04-10 00:28 | disposition home or self-care (01) ==
LOC: ER 23:43
DX: B35.3 Tinea pedis (principal); J44.9 Chronic obstructive pulmonary disease, unspecified; I10 Essential (primary) hypertension; F17.210 Nicotine dependence, cigarettes, uncomplicated; Z79.899 Other long term (current) drug therapy
CPT/HCPCS: 99283; A9270

== ENCOUNTER 2020-04-26 22:14 | Emergency (ER) | payer MEDICARE, OTHER ==
[~2020-04-26] VITALS: Ht 190.5 cm; Wt 77.1 kg
[~2020-04-26 22:14] MED LIST changes: +ATHLETE'S FOO35.4 GM TP
[2020-04-27] MEDS ORDERED: Cleocin HCl300 MG PO (03:41)
== END 2020-04-27 04:00 | disposition home or self-care (01) ==
LOC: ER 22:14
DX: L97.519 Non-pressure chronic ulcer of other part of right foot with unspecified severity (principal); I10 Essential (primary) hypertension; J44.9 Chronic obstructive pulmonary disease, unspecified; F17.210 Nicotine dependence, cigarettes, uncomplicated; Z59.0 Homelessness; Z79.899 Other long term (current) drug therapy
CPT/HCPCS: 99283; A9270

== ENCOUNTER 2020-05-12 01:01 | Day surgery (SDC) | payer MEDICARE, OTHER ==
[2020-05-12 16:55] LABS: BASOPHILS ABSOLUTE AUTO 0.05 K/mm3 (0.00-0.23); BASOPHILS PERCENT AUTO 0 % (0-2); EOSINOPHILS PERCENT AUTO 0 % (0-6); Hematocrit 37.6 % (37.0-53.0); Hemoglobin 12.4 g/dL (13.5-17.5); IMMATURE GRAN ABSOLUTE AUTO 0.04 K/mm3 (0.00-0.10); IMMATURE GRAN PERCENT AUTO 0 % (0-1); LYMPHOCYTES PERCENT AUTO 6 % (21-46); MONOCYTES ABSOLUTE AUTO 0.96 K/mm3 (0.16-1.47); MONOCYTES PERCENT AUTO 6 % (4-13); Mean Corpuscular HGB 29.7 pg (26.0-34.0); Mean Corpuscular Volume 90 fL (80-100); Mean Platelet Volume 8.6 fL (9.1-12.4); NEUTROPHILS ABSOLUTE AUTO 13.35 K/mm3 (1.96-9.15); NEUTROPHILS PERCENT AUTO 87 % (41-73); Platelet Count 305 K/mm3 (150-400); RDW Coefficient Variation 14.4 % (11.7-14.2); RDW Standard Deviation 48.1 fL (35.1-46.3); Red Blood Cell Count 4.17 M/mm3 (4.30-5.90)
[2020-05-12 17:18] LABS: Alanine Aminotransfer (ALT/SGP 28 U/L (12-78); Albumin, Blood 2.8 g/dL (3.4-5.0); Albumin/Globulin Ratio 0.5 (0.8-1.8); Alk Phos 118 U/L (50-136); Anion Gap 3 mmol/L (6-16); Aspartate Aminotrans (AST/SGOT 33 U/L (12-37); Bilirubin, Total 0.6 mg/dL (0.1-1.0); Blood Urea Nitrogen 25 mg/dL (8-24); Bun/Creatinine Ratio 29.2 (12.0-20.0); CO2, Blood 29 mmol/L (21-32); Calcium, Blood 9.3 mg/dL (8.5-10.1); Chloride, Blood 101 mmol/L (98-108); Creatinine, Blood 0.86 mg/dL (0.60-1.20); Globulin, Blood 5.1 g/dL (2.2-4.0); Glomerular Filtration Rate >60 (60-); Glucose, Blood 177 mg/dL (70-99); Potassium, Blood 4.7 mmol/L (3.5-5.5); Prealbumin, Blood 5.5 mg/dL (20.0-40.0); Sodium, Blood 133 mmol/L (136-145); Total Protein, Blood 7.9 g/dL (6.4-8.2)
== END 2020-05-12 23:14 | disposition home or self-care (01) ==
LOC: WOUND 01:01
PROVIDERS: Nurse Practitioner Family
DX: L97.329 Non-pressure chronic ulcer of left ankle with unspecified severity (principal); L97.519 Non-pressure chronic ulcer of other part of right foot with unspecified severity; L97.529 Non-pressure chronic ulcer of other part of left foot with unspecified severity; I73.9 Peripheral vascular disease, unspecified; I87.2 Venous insufficiency (chronic) (peripheral); G90.09 Other idiopathic peripheral autonomic neuropathy; C22.8 Malignant neoplasm of liver, primary, unspecified as to type; C78.1 Secondary malignant neoplasm of mediastinum; C79.89 Secondary malignant neoplasm of other specified sites; F17.200 Nicotine dependence, unspecified, uncomplicated; J44.9 Chronic obstructive pulmonary disease, unspecified; I10 Essential (primary) hypertension; M06.9 Rheumatoid arthritis, unspecified; Z86.19 Personal history of other infectious and parasitic diseases; Z59.0 Homelessness; Z97.8 Presence of other specified devices
CPT/HCPCS: 80053; 84134; 85025; G0463

== ENCOUNTER 2020-05-19 00:21 | Day surgery (SDC) | payer MEDICARE, OTHER | END 2020-05-19 22:54 | disposition home or self-care (01) | LOC: WOUND 00:21 | DX: L97.515 Non-pressure chronic ulcer of other part of right foot with muscle involvement without evidence of necrosis (principal); L97.522 Non-pressure chronic ulcer of other part of left foot with fat layer exposed; I87.2 Venous insufficiency (chronic) (peripheral); I73.9 Peripheral vascular disease, unspecified; G90.09 Other idiopathic peripheral autonomic neuropathy; C22.8 Malignant neoplasm of liver, primary, unspecified as to type; R77.0 Abnormality of albumin; E43 Unspecified severe protein-calorie malnutrition; Z68.1 Body mass index [BMI] 19.9 or less, adult | CPT/HCPCS: G0463 ==

== ENCOUNTER 2020-05-26 00:32 | Day surgery (SDC) | payer MEDICARE, OTHER | END 2020-05-26 22:45 | disposition home or self-care (01) | LOC: WOUND 00:32 | DX: L97.515 Non-pressure chronic ulcer of other part of right foot with muscle involvement without evidence of necrosis (principal); L97.522 Non-pressure chronic ulcer of other part of left foot with fat layer exposed; I73.9 Peripheral vascular disease, unspecified; I87.2 Venous insufficiency (chronic) (peripheral); G90.09 Other idiopathic peripheral autonomic neuropathy; C22.8 Malignant neoplasm of liver, primary, unspecified as to type; C78.1 Secondary malignant neoplasm of mediastinum; C79.89 Secondary malignant neoplasm of other specified sites; R77.0 Abnormality of albumin; Z59.0 Homelessness | CPT/HCPCS: A9270; G0463 ==

== ENCOUNTER 2020-06-04 00:09 | Day surgery (SDC) | payer MEDICARE, OTHER | END 2020-06-04 23:35 | disposition home or self-care (01) | LOC: WOUND 00:09 | DX: L97.515 Non-pressure chronic ulcer of other part of right foot with muscle involvement without evidence of necrosis (principal); L97.522 Non-pressure chronic ulcer of other part of left foot with fat layer exposed; G90.09 Other idiopathic peripheral autonomic neuropathy; C22.8 Malignant neoplasm of liver, primary, unspecified as to type; Z59.0 Homelessness | CPT/HCPCS: A9270; G0463 ==

== ENCOUNTER 2020-06-09 00:50 | Day surgery (SDC) | payer MEDICARE, OTHER | END 2020-06-09 23:29 | disposition home or self-care (01) | LOC: WOUND 00:50 | DX: L97.519 Non-pressure chronic ulcer of other part of right foot with unspecified severity (principal); L97.529 Non-pressure chronic ulcer of other part of left foot with unspecified severity; G90.09 Other idiopathic peripheral autonomic neuropathy; C22.8 Malignant neoplasm of liver, primary, unspecified as to type | CPT/HCPCS: A9270; G0463 ==

== ENCOUNTER 2020-06-17 00:36 | Day surgery (SDC) | payer MEDICARE, OTHER | END 2020-06-17 22:44 | disposition home or self-care (01) | LOC: WOUND 00:36 | DX: L97.515 Non-pressure chronic ulcer of other part of right foot with muscle involvement without evidence of necrosis (principal); L97.522 Non-pressure chronic ulcer of other part of left foot with fat layer exposed; G90.09 Other idiopathic peripheral autonomic neuropathy; I73.9 Peripheral vascular disease, unspecified; C22.8 Malignant neoplasm of liver, primary, unspecified as to type | CPT/HCPCS: 93922; A9270 ==

== ENCOUNTER 2020-06-23 01:22 | Day surgery (SDC) | payer MEDICARE, OTHER | END 2020-06-23 22:46 | disposition home or self-care (01) | LOC: WOUND 01:22 | DX: L97.522 Non-pressure chronic ulcer of other part of left foot with fat layer exposed (principal); L97.512 Non-pressure chronic ulcer of other part of right foot with fat layer exposed; G90.09 Other idiopathic peripheral autonomic neuropathy; C22.8 Malignant neoplasm of liver, primary, unspecified as to type | CPT/HCPCS: A9270 ==

== ENCOUNTER 2020-07-02 14:02 | Emergency (ER) | payer MEDICARE, OTHER ==
[~2020-07-02] VITALS: Ht 190.5 cm; Wt 56.7 kg
[2020-07-02] MEDS ORDERED: SULTRIDS PO (15:03)
== END 2020-07-02 15:30 | disposition home or self-care (01) ==
LOC: ER 14:02
DX: L03.311 Cellulitis of abdominal wall (principal); Z22.322 Carrier or suspected carrier of Methicillin resistant Staphylococcus aureus; J44.9 Chronic obstructive pulmonary disease, unspecified; I10 Essential (primary) hypertension; F17.200 Nicotine dependence, unspecified, uncomplicated
CPT/HCPCS: 99283

== ENCOUNTER 2020-07-26 04:22 | Emergency (ER) | payer MEDICARE, OTHER ==
[~2020-07-26] VITALS: Ht 190.5 cm; Wt 63.5 kg
[2020-07-26 05:38] LABS: BASOPHILS ABSOLUTE AUTO 0.09 K/mm3 (0.00-0.23); BASOPHILS PERCENT AUTO 1 % (0-2); EOSINOPHILS ABSOLUTE AUTO 0.19 K/mm3 (0.00-0.68); EOSINOPHILS PERCENT AUTO 2 % (0-6); Hematocrit 36.9 % (37.0-53.0); Hemoglobin 12.3 g/dL (13.5-17.5); IMMATURE GRAN ABSOLUTE AUTO 0.04 K/mm3 (0.00-0.10); IMMATURE GRAN PERCENT AUTO 0 % (0-1); LYMPHOCYTES ABSOLUTE AUTO 1.66 K/mm3 (0.84-5.20); LYMPHOCYTES PERCENT AUTO 15 % (21-46); MONOCYTES ABSOLUTE AUTO 1.06 K/mm3 (0.16-1.47); MONOCYTES PERCENT AUTO 10 % (4-13); Mean Corpuscular HGB 29.8 pg (26.0-34.0); Mean Corpuscular HGB Conc 33.3 g/dL (31.5-36.5); Mean Corpuscular Volume 89 fL (80-100); Mean Platelet Volume 8.2 fL (9.1-12.4); NEUTROPHILS ABSOLUTE AUTO 8.11 K/mm3 (1.96-9.15); NEUTROPHILS PERCENT AUTO 73 % (41-73); Platelet Count 239 K/mm3 (150-400); RDW Coefficient Variation 13.3 % (11.7-14.2); RDW Standard Deviation 43.8 fL (35.1-46.3); Red Blood Cell Count 4.13 M/mm3 (4.30-5.90); White Blood Cell Count 11.15 K/mm3 (4.00-11.30)
[2020-07-26 06:01] LABS: Alanine Aminotransfer (ALT/SGP 41 U/L (12-78); Albumin, Blood 3.1 g/dL (3.4-5.0); Albumin/Globulin Ratio 0.8 (0.8-1.8); Alk Phos 143 U/L (50-136); Anion Gap 7 mmol/L (6-16); Aspartate Aminotrans (AST/SGOT 35 U/L (12-37); Bilirubin, Total 0.3 mg/dL (0.1-1.0); Blood Urea Nitrogen 16 mg/dL (8-24); Bun/Creatinine Ratio 23.4 (12.0-20.0); CO2, Blood 24 mmol/L (21-32); Calcium, Blood 8.6 mg/dL (8.5-10.1); Chloride, Blood 106 mmol/L (98-108); Creatinine, Blood 0.68 mg/dL (0.60-1.20); Globulin, Blood 4.1 g/dL (2.2-4.0); Glomerular Filtration Rate >60 (60-); Glucose, Blood 94 mg/dL (70-99); Potassium, Blood 3.6 mmol/L (3.5-5.5); Sodium, Blood 137 mmol/L (136-145); Total Protein, Blood 7.2 g/dL (6.4-8.2)
== END 2020-07-26 07:20 | disposition home or self-care (01) ==
LOC: ER 04:22
PROVIDERS: Emergency Medicine
DX: R10.9 Unspecified abdominal pain (principal); J44.9 Chronic obstructive pulmonary disease, unspecified; I10 Essential (primary) hypertension; F17.200 Nicotine dependence, unspecified, uncomplicated; Z88.8 Allergy status to other drugs, medicaments and biological substances; Z88.1 Allergy status to other antibiotic agents
CPT/HCPCS: 36415; 74176; 80053; 83690; 85025; 99284-25

== ENCOUNTER 2020-07-28 03:32 | Day surgery (SDC) | payer MEDICARE, OTHER | END 2020-07-28 23:06 | disposition home or self-care (01) | LOC: WOUND 03:32 | DX: L97.516 Non-pressure chronic ulcer of other part of right foot with bone involvement without evidence of necrosis (principal); L97.522 Non-pressure chronic ulcer of other part of left foot with fat layer exposed; G90.09 Other idiopathic peripheral autonomic neuropathy; C22.8 Malignant neoplasm of liver, primary, unspecified as to type ==

== ENCOUNTER 2020-08-05 03:25 | Day surgery (SDC) | payer MEDICARE, OTHER | END 2020-08-05 23:27 | disposition home or self-care (01) | LOC: WOUND 03:25 | DX: L97.519 Non-pressure chronic ulcer of other part of right foot with unspecified severity (principal); L97.529 Non-pressure chronic ulcer of other part of left foot with unspecified severity; R21 Rash and other nonspecific skin eruption; L29.9 Pruritus, unspecified; G90.09 Other idiopathic peripheral autonomic neuropathy; C22.8 Malignant neoplasm of liver, primary, unspecified as to type | CPT/HCPCS: A9270; G0463 ==

== ENCOUNTER 2020-08-11 15:39 | Inpatient (IN) | payer MEDICARE, OTHER ==
[~2020-08-11] VITALS: Ht 182.9 cm; Wt 57.2 kg
[2020-08-11 17:03] LABS: BASOPHILS ABSOLUTE AUTO 0.03 K/mm3 (0.00-0.23); BASOPHILS PERCENT AUTO 0 % (0-2); EOSINOPHILS ABSOLUTE AUTO 0.07 K/mm3 (0.00-0.68); EOSINOPHILS PERCENT AUTO 1 % (0-6); Hematocrit 43.5 % (37.0-53.0); Hemoglobin 14.2 g/dL (13.5-17.5); IMMATURE GRAN ABSOLUTE AUTO 0.02 K/mm3 (0.00-0.10); IMMATURE GRAN PERCENT AUTO 0 % (0-1); LYMPHOCYTES ABSOLUTE AUTO 1.69 K/mm3 (0.84-5.20); LYMPHOCYTES PERCENT AUTO 21 % (21-46); MONOCYTES PERCENT AUTO 10 % (4-13); Mean Corpuscular HGB 29.3 pg (26.0-34.0); Mean Corpuscular HGB Conc 32.6 g/dL (31.5-36.5); Mean Corpuscular Volume 90 fL (80-100); Mean Platelet Volume 8.9 fL (9.1-12.4); NEUTROPHILS ABSOLUTE AUTO 5.64 K/mm3 (1.96-9.15); NEUTROPHILS PERCENT AUTO 68 % (41-73); Platelet Count 384 K/mm3 (150-400); RDW Coefficient Variation 13.3 % (11.7-14.2); RDW Standard Deviation 44.4 fL (35.1-46.3); Red Blood Cell Count 4.84 M/mm3 (4.30-5.90); White Blood Cell Count 8.25 K/mm3 (4.00-11.30)
[2020-08-11 17:17] LABS: Alanine Aminotransfer (ALT/SGP 35 U/L (12-78); Albumin, Blood 3.3 g/dL (3.4-5.0); Albumin/Globulin Ratio 0.7 (0.8-1.8); Alk Phos 209 U/L (50-136); Anion Gap 7 mmol/L (6-16); Aspartate Aminotrans (AST/SGOT 36 U/L (12-37); Bilirubin, Total 0.6 mg/dL (0.1-1.0); Blood Urea Nitrogen 33 mg/dL (8-24); CO2, Blood 24 mmol/L (21-32); Calcium, Blood 9.2 mg/dL (8.5-10.1); Chloride, Blood 100 mmol/L (98-108); Creatinine, Blood 1.32 mg/dL (0.60-1.20); Globulin, Blood 4.8 g/dL (2.2-4.0); Glomerular Filtration Rate 57 (60-); Glucose, Blood 187 mg/dL (70-99); Potassium, Blood 4.3 mmol/L (3.5-5.5); Sodium, Blood 131 mmol/L (136-145); Total Protein, Blood 8.1 g/dL (6.4-8.2); Troponin I <0.015 ng/mL (0.000-0.040)
[2020-08-11] MEDS ORDERED: Oxycodone HCl20 M1 PO (18:23)
[2020-08-11] MEDS ORDERED: OMEP20ER PO (18:29)
--- NOTE | 2020-08-11 22:20 | NUR ---
PT VOICED HE HAD SOME RECTAL BLEEDING, BUT HAD FLUSHED THE TOILET BEFORE STAFF COULD VERIFY IT. ALSO REQUESTED PREPARATION H FOR RECTAL DISCOMFORT. MD NOTIFIED. PREP H ORDERED, CBC ALREADY SCHEDULED IN THE AM. WILL MONITOR. CALL LIGHT IN REACH
--- NOTE | 2020-08-11 22:35 | NUR ---
ADMIT NOTE. 70 YR OLD MLE ADMITTED TO FLOOR FROM THE ED WITH DXALLERGIC REACTION TO ANTIBIOTIC. ED RN REEPOTED THAT PT [facility] AND HAD HAD A FEW MEDS WHILE THERE, PPARENTLY DURING THE ADMINISTRATION OF ANTIBIOTICS BECAME SHORT OF BREATH AND WAS TANSFERRED HERE TO THE [facility]. APPEARS EMACIATED, VERY UNDERWEIGHT. ABLE TO AMBULATE TO AND FROM THE BR. ALERT AND ORIENTED TO QUESTIONS ASKED. ORIENTED TO CALL LIGHT. CALL LIGHT IN REACH
--- NOTE | 2020-08-12 05:11 | NUR ---
FOOD SAMPLER SUMMARY PT A/O X3. FULL CODE. ADMITTED FOR OBS D/T DEHYDRATION AND PAIN. NS INFUSING 100ML/HR, TOLERATING PO INTAKE WELL. PT HAS PEG TUBE WHICH HE STATES "I WANT THIS OUT, I HAVEN'T USED IT IN 4 MONTHS". PT SHOWERED, HAD WOUND CARE OF BILATERAL TOE ULCERATIONS, FOOD CART ATTENDANT NOW. MEDICATED FOR PAIN PER EMAR. NO SIGNIFICANT EVENTS OR DISTRESS THIS SHIFT. VITAL SIGNS STABLE. WILL CONTINUE TO MONITOR.
[2020-08-12 05:28] LABS: BASOPHILS ABSOLUTE AUTO 0.03 K/mm3 (0.00-0.23); BASOPHILS PERCENT AUTO 0 % (0-2); EOSINOPHILS ABSOLUTE AUTO 0.14 K/mm3 (0.00-0.68); EOSINOPHILS PERCENT AUTO 2 % (0-6); Hematocrit 36.8 % (37.0-53.0); IMMATURE GRAN ABSOLUTE AUTO 0.03 K/mm3 (0.00-0.10); IMMATURE GRAN PERCENT AUTO 0 % (0-1); LYMPHOCYTES ABSOLUTE AUTO 1.66 K/mm3 (0.84-5.20); LYMPHOCYTES PERCENT AUTO 23 % (21-46); MONOCYTES ABSOLUTE AUTO 0.65 K/mm3 (0.16-1.47); MONOCYTES PERCENT AUTO 9 % (4-13); Mean Corpuscular HGB 29.3 pg (26.0-34.0); Mean Corpuscular HGB Conc 32.6 g/dL (31.5-36.5); Mean Corpuscular Volume 90 fL (80-100); Mean Platelet Volume 8.6 fL (9.1-12.4); NEUTROPHILS ABSOLUTE AUTO 4.79 K/mm3 (1.96-9.15); NEUTROPHILS PERCENT AUTO 66 % (41-73); Platelet Count 265 K/mm3 (150-400); RDW Coefficient Variation 13.3 % (11.7-14.2); RDW Standard Deviation 44.1 fL (35.1-46.3); Red Blood Cell Count 4.09 M/mm3 (4.30-5.90)
[2020-08-12 05:57] LABS: Alanine Aminotransfer (ALT/SGP 26 U/L (12-78); Albumin, Blood 2.5 g/dL (3.4-5.0); Albumin/Globulin Ratio 0.6 (0.8-1.8); Alk Phos 168 U/L (50-136); Anion Gap 6 mmol/L (6-16); Aspartate Aminotrans (AST/SGOT 32 U/L (12-37); Bilirubin, Total 0.3 mg/dL (0.1-1.0); Blood Urea Nitrogen 25 mg/dL (8-24); Bun/Creatinine Ratio 28.3 (12.0-20.0); CO2, Blood 23 mmol/L (21-32); Calcium, Blood 7.9 mg/dL (8.5-10.1); Chloride, Blood 100 mmol/L (98-108); Creatinine, Blood 0.88 mg/dL (0.60-1.20); Glomerular Filtration Rate >60 (60-); Glucose, Blood 127 mg/dL (70-99); Potassium, Blood 4.2 mmol/L (3.5-5.5); Sodium, Blood 129 mmol/L (136-145); Total Protein, Blood 6.5 g/dL (6.4-8.2)
--- NOTE | 2020-08-12 06:28 | NUR ---
I HAVE READ THE OCUMENTATION OF ABDIRAHMAN WRIGHT STUDENT NURSE AND AGREE WITH HER ASSESSMENT, ADRIAN RAINEY RN
--- NOTE | 2020-08-12 07:30 | NUR ---
ASSUMED CARE: PT RESTING IN BED, TALKING TO STAFF. HARD OF HEARING. C/O ORAL PAIN. SCABS AND ULCERS IN MOUTH NOTED. OFFERED MAGIC MOUTH WASH BUT PT REQUESTED TO EAT BREAKFAST FIRST. NO OTHER NEEDS AT THIS TIME.
--- NOTE | 2020-08-12 12:56 | NUR ---
PT STATED TO DIETARY THAT HE WANTS HIS PEG TUBE REMOVED. PT STATES HE HAS NOT BEEN FLUSHING IT OR USING IT. CALL TO DR CASAS WHO STATES SHE IS REVIEWING CHART TO SEE WHAT NEEDS TO BE DONE PRIOR TO PT'S DC
--- NOTE | 2020-08-12 17:38 | NUR ---
Spiritual care note: Pt was pleasantly dismissive. He told me he didn't want to talk b/c his mouth hurt too much. He appears quite frail. Sores on mouth and hands. Prayer provided. I will remain available.
--- NOTE | 2020-08-12 17:56 | NUR ---
SHIFT SUMMARY: DR SEAMAN CAME AND REMOVED PT'S PEG TUBE AND ABD WAS PLACED OVER ENTRANCE POINT. DR VALENTINE CAME TO SEE PT AND AGREES THAT HIS ORAL LESIONS AND SKIN SLOUGHING ARE LIKELY A MEDICATION REACTION. DR VALENTINE STATES SHE WILL BE BACK TO SEE PT TOMORROW AND ASKED US TO CONTINUE TO MONITOR AND UPDATE IF REACTION WORSENS. DR CASAS AWARE. DR VALENTINE AGREES WITH MAGIC MOUTH WASH AND FENTANYL FOR PAIN. PT DENIES FURTHER NEEDS OR CONCERNS AT THIS TIME.
--- NOTE | 2020-08-13 03:31 | NUR ---
GI: PEG TUBE SITE IS LEAKING DUE TO PATIENT'S HIGH PO INTAKE OF A FULL LIQIUD DIET. DR RINCON WAS NOTIFIED AND ORDER TO KEEP PATIENT NPO FOR 12 HOURS AND RE-ASSESS, WAS OBTAINED.
[2020-08-13 05:49] LABS: Albumin, Blood 2.5 g/dL (3.4-5.0); Anion Gap 4 mmol/L (6-16); Blood Urea Nitrogen 13 mg/dL (8-24); Bun/Creatinine Ratio 25.2 (12.0-20.0); CO2, Blood 26 mmol/L (21-32); Calcium, Blood 8.1 mg/dL (8.5-10.1); Chloride, Blood 101 mmol/L (98-108); Creatinine, Blood 0.52 mg/dL (0.60-1.20); Glomerular Filtration Rate >60 (60-); Glucose, Blood 104 mg/dL (70-99); Potassium, Blood 4.5 mmol/L (3.5-5.5); Sodium, Blood 131 mmol/L (136-145)
--- NOTE | 2020-08-13 07:21 | NUR ---
ASSUMED CARE: PT RESTING QUIETLY AT THIS TIME. NPO IN PLACE DUE TO LEAKING FROM PEG SITE LAST PM. NO ACUTE NEEDS OR CONCERNS PRESENTLY
--- NOTE | 2020-08-13 07:48 | NUR ---
SHIFT SUMMARY: PEG TUBE SITE DRSG IS C,D&I. PATIENT IS NPO UNTIL 1300 TODAY. CONTINUES TO REPORT MOUTH/LIPS AND ABD. PAIN. IV FENTANYL AND MEDICATED MOUTH SWISH ARE EFFECTIVE FOR PAIN CONTROL. [facility] ARE AT BEDSIDE.
--- NOTE | 2020-08-13 14:48 | NUR ---
PT RECIEVED LUNCH TRAY AND BEGAN EATING. STAFF WARNED HIM TO GO SLOW SO THAT HIS PEG SITE WOULDN'T BEGIN LEAKING AGAIN. PT CONTINUED TO EAT AND CALLED STAFF THAT HE THOUGHT HE WAS LEAKING AGAIN. PT'S LUNCH CONTAINED TOMATOE SOUP, MAGIC, CUP AND PUDDING. LEAKAGE WAS LIGHT BROWN WITH WHAT APPEARED TO BE WATER, CONTINUALLY LEAKING OUT. PRESSURE HELD AND WHEN PRESSURE WAS REMOVED SITE CONTINUED LEAKING. THERE WAS ENOUGH VOLUME TO THINK THAT A MAJORITY OF MEAL CAME OUT OF PEG SITE. PT STATES IT HURTS AND SKIN IS RED AROUND INSERTION AND DOES APPEAR TO HAVE YELLOW DRAINAGE. CALL TO DR CASAS WHO CALLED DR ZAMAN WHO INSTRUCTS TO PUT OCCLUSIVE DRESSING THAT PT WILL STILL OOZE AND CAN EAT. INSTRUCTED TO WATCH FOR SIGNS OF PERITONITIS
--- NOTE | 2020-08-13 19:18 | NUR ---
SHIFT SUMMARY: OCCLUSIVE DRESSING IN PLACE WITH SMALL AMOUNT OF DRAINAGE FROM PEG SITE NOTED. MEDICATED FOR PAIN WITH MAGIC MOUTH WASH AND FENTANYL. DERMATOLOGY CAME TO SEE PT AND REPORTED TO CREATIVE SERVICES WRITER THAT PT DOES NOT SEEM TO BE WORSENING AND WILL COME SEE AGAIN TOMORROW. NO FURTHER NEEDS AT THIS TIME.
[2020-08-14 05:01] LABS: Hematocrit 39.5 % (37.0-53.0); Hemoglobin 12.9 g/dL (13.5-17.5); Mean Corpuscular HGB 29.2 pg (26.0-34.0); Mean Corpuscular HGB Conc 32.7 g/dL (31.5-36.5); Mean Corpuscular Volume 89 fL (80-100); Platelet Count 336 K/mm3 (150-400); RDW Coefficient Variation 13.2 % (11.7-14.2); RDW Standard Deviation 43.1 fL (35.1-46.3); Red Blood Cell Count 4.42 M/mm3 (4.30-5.90); White Blood Cell Count 8.67 K/mm3 (4.00-11.30)
[2020-08-14 05:24] LABS: Albumin, Blood 2.6 g/dL (3.4-5.0); Anion Gap 3 mmol/L (6-16); Blood Urea Nitrogen 14 mg/dL (8-24); Bun/Creatinine Ratio 26.3 (12.0-20.0); CO2, Blood 29 mmol/L (21-32); Calcium, Blood 8.4 mg/dL (8.5-10.1); Chloride, Blood 99 mmol/L (98-108); Creatinine, Blood 0.53 mg/dL (0.60-1.20); Glomerular Filtration Rate >60 (60-); Glucose, Blood 133 mg/dL (70-99); Phosphorus, Blood 1.4 mg/dL (2.5-4.9); Potassium, Blood 4.4 mmol/L (3.5-5.5); Sodium, Blood 131 mmol/L (136-145)
--- NOTE | 2020-08-14 07:33 | NUR ---
SHIFT SUMMARY: PATIENT CONTINUES TO HAVE MOUTH AND ABD. PAIN 7-8/10. IV FENTANYL HAS BEEN GIVEN Q 2-3H AND MEDICATED ORAL RINSE PER MAY WITH FAIR EFFECT. PATIENT HAS BEEN REQUESTING LARGE AMOUNTS OF FOOD AND FLUIDS. PEG TUBE SITE CONTINUES TO LEAK, DRSG WAS CHANGED. PEG SITE IS RED AND TENDER TO TOUCH. VSS.
--- NOTE | 2020-08-14 13:21 | NUR ---
Pt A&O and eating lunch upon arrival. Pt states "I'm going to beat this". Requested Pt to elaborate on statement with Pt stating he is going to beat his cancer. Pt reports losing other family members to cancer and does not want that to happen to him. Validated concerns, praised Pt for positive attitude, and offered therapeutic listening. Encouraged Pt to plan for the future while maintaining hope. Encouraged Pt to considering appointing a healthcare proxy. Pt reports having family but has nothing to do with them in quite some time. Pt reports having an advocate who he trusts. Suggested to Pt to consider speaking with her about being his proxy. Pt reports he will consider this option. Pt is requesting pain medication. Ended visit to allow Pt to finish his lunch. Spoke with Primary RN Claudia and reported Pt's request for pain medication. Palliative Care will remain available.
--- NOTE | 2020-08-14 17:32 | NUR ---
SHIFT SUMMARY PT RESTING QUIETLY AT START OF SHIFT. UP TO CHAIR AT BS FOR MEALS AND THRU OUT THE DAY. PT HAS BEEN INDEPENDENT IN AND TO [facility]. PT ALSO GAVE HIMSELF A SHOWER THIS AM. REQUEST PAIN MEDICATION AT BREAKFAST AND AGAIN THIS AFTERNOON. DRESSING TO LLQ CHANGED AFTER SHOWER AND THEN DR CASAS WANTED TO ASSESS PEG TUBE SITE. DRSG REMOVED AND REPLACED AGAIN TWICE THIS AFTERNOON. PT C/O BEING HUNGRY ON FULL LIQUID DIET. DIET CHANGED TO PUREE AND CAN BE ADVANCED TOLERATED; GOAL IS MECH SOFT D/T PT'S SORE MOUTH AND HAVING LIMITED TEETH. PT ABLE TO WORK WITH PT/OT TODAY WELL. CAN BE IRRITABLE AT TIMES FOR LITTLE TO NO REASON. CALL LT IN REACH. ABLE TO MAKE NEEDS KNOWN
--- NOTE | 2020-08-14 19:04 | NUR ---
DIET CHANGED TO MECH SOFT PER PT REQUEST. DR CASAS INFORMED PT THAT WE COULD ADVANCE DIET TO WHAT HIS SORE MOUTH COULD TOLERATE WELL ONLY HAVING LIMITED TEETH. PT IS AWARE THAT HE CAN GO BACK TO [facility] [place] IF THE MECH SOFT FOOD ISN'T TOLERABLE. REPORT GIVEN.
--- NOTE | 2020-08-15 04:36 | NUR ---
SHIFT SUMMARY PT SLEPT OFF AND ON THIS EVENING. TOOK SEVERAL WALKS AROUND THE HALLS. COMPLAINED OF PAIN, MOSTLY IN MOUTH BUT GENERALIZED WELL. MEDICATED X 2 WITH PERCOCET 5/325. PT ALSO RECIEVED ONE DOSE OF MAGIC MOUTHWASH. PT REQUESTED FREQUENT SNACKS THROUGHOUT THE NIGHT. DRESSING TO OLD PEG TUBE SITE CHANGED. LARGE AMOUNT OF DRAINAGE FROM SITE. BOTH DRESSINGS TO TOE WOUNDS REMAINED C/D/I. SMALL SCATTERED WOUNDS NOTED. VITAL SIGNS STABLE. NO ACUTE CHANGES THIS EVENING. WILL CONTINUE TO MONITOR.
[2020-08-15 09:06] LABS: Hematocrit 39.6 % (37.0-53.0); Hemoglobin 12.8 g/dL (13.5-17.5); Mean Corpuscular HGB 29.4 pg (26.0-34.0); Mean Corpuscular HGB Conc 32.3 g/dL (31.5-36.5); Mean Corpuscular Volume 91 fL (80-100); Mean Platelet Volume 8.8 fL (9.1-12.4); Platelet Count 358 K/mm3 (150-400); RDW Coefficient Variation 13.4 % (11.7-14.2); RDW Standard Deviation 44.3 fL (35.1-46.3); Red Blood Cell Count 4.36 M/mm3 (4.30-5.90); White Blood Cell Count 10.52 K/mm3 (4.00-11.30)
[2020-08-15 09:34] LABS: Albumin, Blood 2.6 g/dL (3.4-5.0); Anion Gap 4 mmol/L (6-16); Blood Urea Nitrogen 18 mg/dL (8-24); Bun/Creatinine Ratio 26.7 (12.0-20.0); CO2, Blood 31 mmol/L (21-32); Calcium, Blood 8.6 mg/dL (8.5-10.1); Chloride, Blood 99 mmol/L (98-108); Creatinine, Blood 0.67 mg/dL (0.60-1.20); Glomerular Filtration Rate >60 (60-); Glucose, Blood 118 mg/dL (70-99); Phosphorus, Blood 3.3 mg/dL (2.5-4.9); Potassium, Blood 4.1 mmol/L (3.5-5.5); Sodium, Blood 134 mmol/L (136-145)
[2020-08-15] MEDS ORDERED: DIPHEN12.5 MG/7 PO (12:57)
[2020-08-15] MEDS ORDERED: GLYDO6 M2 PO (12:59)
[2020-08-15] MEDS ORDERED: Percocet 5-3251 EACH PO (13:00)
[2020-08-15] MEDS ORDERED: SENN187 PO (13:02)
[2020-08-15] MEDS ORDERED: SKIN PROTECTAN454 GM TOP (13:02)
[2020-08-15] MEDS ORDERED: PRED5EL PO (13:03)
[2020-08-15] MEDS ORDERED: Preparation H26 GM PR (13:06)
[2020-08-15] MEDS ORDERED: GI COCKTAIL PO (13:07)
--- NOTE | 2020-08-15 15:10 | NUR ---
PT DISCHARGED THE PT VERBALIZED UNDERSTANDING OF THE DC INSTRUCTIONS, THE PT WAS INSTRUCTED TO CALL HIS PCP AND ESTABLISH AN APPOINTMENT ON MONDAY, THE PTS PRESCRIPTIONS WERE FAXED TO [facility] THE PT INSTRUCTED A PRESCRIPTION FOR PERCOCET WAS GIVEN TO THE PT, THE PT WAS REMINDED TO FOLLOW UP WITH THE WOUND CLINIC NEXT WEEK, THE PT WAS TRANSFERED VIA WHEELCHAIR TO MEET A TAXI PROVIDED BY [facility], THE PT APPEARED TO BE BREATHING EASILY ON RA AT THE TIME OF DC
== END 2020-08-15 15:09 | disposition home or self-care (01) | DRG 596 ==
LOC: ER 15:39 → MEDS 15:40
PROVIDERS: Emergency Medicine; Internal Medicine; ADMIT Internal Medicine
DX: L51.1 Stevens-Johnson syndrome (principal); N17.9 Acute kidney failure, unspecified; L97.419 Non-pressure chronic ulcer of right heel and midfoot with unspecified severity; C22.0 Liver cell carcinoma; C77.9 Secondary and unspecified malignant neoplasm of lymph node, unspecified; E44.0 Moderate protein-calorie malnutrition; Z68.1 Body mass index [BMI] 19.9 or less, adult; E87.1 Hypo-osmolality and hyponatremia; K31.6 Fistula of stomach and duodenum; T31.0 Burns involving less than 10% of body surface; Z51.5 Encounter for palliative care; K94.29 Other complications of gastrostomy; T36.8X5A Adverse effect of other systemic antibiotics, initial encounter; M54.2 Cervicalgia; G89.29 Other chronic pain; K21.9 Gastro-esophageal reflux disease without esophagitis; J44.9 Chronic obstructive pulmonary disease, unspecified; F17.210 Nicotine dependence, cigarettes, uncomplicated; I10 Essential (primary) hypertension; B19.20 Unspecified viral hepatitis C without hepatic coma; E86.0 Dehydration; Z86.010 Personal history of colon polyps; Z86.14 Personal history of Methicillin resistant Staphylococcus aureus infection; Z98.890 Other specified postprocedural states; Z87.81 Personal history of (healed) traumatic fracture; Z87.828 Personal history of other (healed) physical injury and trauma
CPT/HCPCS: 36415; 71046; 80053; 80069; 84484; 85025; 85027; 93005; 93010; 94760; 96374; 96375; 96376; 97110; 97116; 97162; 97165; 97535; 99285-25; A9270; C9113; G0378; J3010; J7030; J7060

== ENCOUNTER 2020-08-18 02:26 | Day surgery (SDC) | payer MEDICARE, OTHER ==
[~2020-08-18 02:26] MED LIST changes: +DIPHEN12.5 MG/7 PO; +GI COCKTAIL PO; +GLYDO6 M2 PO; +Oxycodone HCl20 M1 PO; +PRED5EL PO; +Preparation H26 GM PR; +SENN187 PO; +SKIN PROTECTAN454 GM TOP
== END 2020-08-18 22:51 | disposition home or self-care (01) ==
LOC: WOUND 02:26
DX: L97.512 Non-pressure chronic ulcer of other part of right foot with fat layer exposed (principal); L97.522 Non-pressure chronic ulcer of other part of left foot with fat layer exposed; R21 Rash and other nonspecific skin eruption; L29.9 Pruritus, unspecified; G90.09 Other idiopathic peripheral autonomic neuropathy; C22.8 Malignant neoplasm of liver, primary, unspecified as to type; M79.671 Pain in right foot
CPT/HCPCS: 73630; A9270

== ENCOUNTER 2020-08-26 04:55 | Emergency (ER) | payer MEDICARE, OTHER ==
[~2020-08-26] VITALS: Ht 190.5 cm; Wt 61.2 kg
== END 2020-08-26 08:11 | disposition home or self-care (01) ==
LOC: ER 04:55
DX: S60.445A External constriction of left ring finger, initial encounter (principal); J44.9 Chronic obstructive pulmonary disease, unspecified; I10 Essential (primary) hypertension; F17.210 Nicotine dependence, cigarettes, uncomplicated; Z88.2 Allergy status to sulfonamides; Z88.1 Allergy status to other antibiotic agents; Z88.8 Allergy status to other drugs, medicaments and biological substances; Z79.899 Other long term (current) drug therapy; W49.04XA Ring or other jewelry causing external constriction, initial encounter
CPT/HCPCS: 73140; 99283-25

== ENCOUNTER 2020-09-01 04:35 | Day surgery (SDC) | payer MEDICARE, OTHER | END 2020-09-01 23:03 | disposition home or self-care (01) | LOC: WOUND 04:35 | DX: L97.519 Non-pressure chronic ulcer of other part of right foot with unspecified severity (principal); L97.529 Non-pressure chronic ulcer of other part of left foot with unspecified severity; T81.89XD Other complications of procedures, not elsewhere classified, subsequent encounter; R21 Rash and other nonspecific skin eruption; L29.9 Pruritus, unspecified; G90.09 Other idiopathic peripheral autonomic neuropathy; C22.8 Malignant neoplasm of liver, primary, unspecified as to type; M79.671 Pain in right foot | CPT/HCPCS: A9270; G0463 ==

== ENCOUNTER 2020-09-08 03:32 | Day surgery (SDC) | payer MEDICARE, OTHER | END 2020-09-08 23:50 | disposition home or self-care (01) | LOC: WOUND 03:32 | DX: L97.519 Non-pressure chronic ulcer of other part of right foot with unspecified severity (principal); L97.529 Non-pressure chronic ulcer of other part of left foot with unspecified severity; T81.89XD Other complications of procedures, not elsewhere classified, subsequent encounter; R21 Rash and other nonspecific skin eruption; L29.9 Pruritus, unspecified; G90.09 Other idiopathic peripheral autonomic neuropathy; C22.8 Malignant neoplasm of liver, primary, unspecified as to type; M79.671 Pain in right foot | CPT/HCPCS: A9270; G0463 ==

== ENCOUNTER 2020-09-15 04:19 | Day surgery (SDC) | payer MEDICARE, OTHER | END 2020-09-15 22:53 | disposition home or self-care (01) | LOC: WOUND 04:19 | DX: L97.519 Non-pressure chronic ulcer of other part of right foot with unspecified severity (principal); L97.529 Non-pressure chronic ulcer of other part of left foot with unspecified severity; T81.89XD Other complications of procedures, not elsewhere classified, subsequent encounter; R21 Rash and other nonspecific skin eruption; L29.9 Pruritus, unspecified; G90.09 Other idiopathic peripheral autonomic neuropathy; C22.8 Malignant neoplasm of liver, primary, unspecified as to type; M79.671 Pain in right foot; Z88.1 Allergy status to other antibiotic agents; M86.9 Osteomyelitis, unspecified; Z01.812 Encounter for preprocedural laboratory examination | CPT/HCPCS: 36415; 80048; 80076; 85025; 85610; 85730; A9270; G0463 ==

== ENCOUNTER 2020-09-22 06:09 | Inpatient (IN) | payer MEDICARE, OTHER ==
[~2020-09-22] VITALS: Ht 190.5 cm; Wt 53.8 kg
[2020-09-22] MEDS ORDERED: Prinivil10 MG PO (06:27)
[2020-09-22] MEDS ORDERED: Oxycodone HCl20 M1 PO (06:27)
--- NOTE | 2020-09-22 08:29 | NUR ---
09/22/20 0829 Aurea Kaba APPLIED RIGHT LOWER EXTREMITY TOURNIQUET ...DID NOT INFLATE.
[2020-09-22 08:55] LABS: BASOPHILS PERCENT AUTO 1 % (0-2); EOSINOPHILS PERCENT AUTO 1 % (0-6); Hematocrit 38.9 % (37.0-53.0); Hemoglobin 12.6 g/dL (13.5-17.5); IMMATURE GRAN ABSOLUTE AUTO 0.02 K/mm3 (0.00-0.10); IMMATURE GRAN PERCENT AUTO 0 % (0-1); LYMPHOCYTES ABSOLUTE AUTO 1.23 K/mm3 (0.84-5.20); LYMPHOCYTES PERCENT AUTO 14 % (21-46); MONOCYTES ABSOLUTE AUTO 0.78 K/mm3 (0.16-1.47); MONOCYTES PERCENT AUTO 9 % (4-13); Mean Corpuscular HGB 29.5 pg (26.0-34.0); Mean Corpuscular HGB Conc 32.4 g/dL (31.5-36.5); Mean Corpuscular Volume 91 fL (80-100); Mean Platelet Volume 9.1 fL (9.1-12.4); NEUTROPHILS ABSOLUTE AUTO 6.62 K/mm3 (1.96-9.15); NEUTROPHILS PERCENT AUTO 75 % (41-73); Platelet Count 246 K/mm3 (150-400); RDW Coefficient Variation 14.4 % (11.7-14.2); RDW Standard Deviation 48.4 fL (35.1-46.3); Red Blood Cell Count 4.27 M/mm3 (4.30-5.90); White Blood Cell Count 8.85 K/mm3 (4.00-11.30)
[2020-09-22 08:58] LABS: Albumin, Blood 3.1 g/dL (3.4-5.0); Albumin/Globulin Ratio 0.7 (0.8-1.8); Bilirubin, Total 0.4 mg/dL (0.1-1.0); Bun/Creatinine Ratio 19.5 (12.0-20.0); Calcium, Blood 8.4 mg/dL (8.5-10.1); Creatinine, Blood 2.36 mg/dL (0.60-1.20); Globulin, Blood 4.4 g/dL (2.2-4.0); Magnesium, Blood 1.5 mg/dL (1.6-2.4); Phosphorus, Blood 3.4 mg/dL (2.5-4.9); Potassium, Blood 4.3 mmol/L (3.5-5.5); Total Protein, Blood 7.5 g/dL (6.4-8.2)
--- NOTE | 2020-09-22 09:33 | NUR ---
PT ARRIVED TO UNIT AT APROX 0933 FROM PACU. R FOOT WITH WRAP IN PLACE COVERING SURGICAL SITE 2ND TOE AMPUTATION. CAP REFILL WNL, WIGGLES TOES ON COMMAND. PT DENIES PAIN AT THIS TIME.
--- NOTE | 2020-09-22 12:16 | NUR ---
PT REPORTS DIFFICULTY SWALLOWING SINCE PEG TUBE FELL OUT. DECLINED TO EAT PART OF HIS LUNCH R/T DIFFICULTY. NO COUGHING WHILE DRINKING FLUIDS. ABLE TO TOLERATE SOME FOODS, PT REPORTS MAINLY MEATS
[2020-09-22 15:33] LABS: Source, Urine Clean Catch
[2020-09-22 15:38] LABS: Appearance, Urine Clear (Clear); Bilirubin, Urine Neg (Neg); Blood, Urine Neg (Neg); Color, Urine Yellow (P-Yellow); Glucose Qualitative, Urine Neg (Neg); Ketones, Urine Neg (Neg); Leukocyte Esterase, Urine Neg (Neg); Nitrite, Urine Neg (Neg); Protein, Urine Neg (Neg); Specific Gravity, Urine 1.015 (1.003-1.022); Urobilinogen, Urine NORM (Normal)
[2020-09-22 15:53] LABS: U Amphetamine Screen DETECTED; U Barbituate Screen Not Detected; U Benzodiazapine Screen Not Detected; U Buprenorphine Screen Not Detected; U Cannabinoids Screen Not Detected; U Cocaine Screen Not Detected; U Methadone Screen Not Detected; U Methamphetamine Screen DETECTED; U Opiates Screen DETECTED; U Oxycodone Screen DETECTED; U Phencyclidine Screen Not Detected; U Propoxyphene Screen Not Detected
--- NOTE | 2020-09-22 17:23 | NUR ---
SHIFT SUMMARY S/P AMPUTATION OF R SECOND TOE. DRESSING COVERED WITH GAUZE. PT REPORTS PAIN WHEN ASKED BUT SLEEPS OTHERWISE WITH NO SIGNS OF DISTRESS OR DISCOMFORT. PT HAS DIFFICULTY SWALLOWING, HE REPORTS BASELINE FOR HIM. EDUCATED HIM ON NEED FOR SAFETY WITH SWALLOWING PT CONTINUES TO ASK FOR FOOD AND ATTEMPT TO EAT. NO COUGHING WHILE DRINKING LIQUIDS SEEN. ATTEMPTED TO EDUCATE PT ON WEIGHT BEARING STATUS, HE LISTENS AND WILL NOT FOLLOW THE DIRECTIONS WITH REPEAT PROMPTING. PLAN IS TO CONTINUE ENCOURAGING PO INTAKE.
--- NOTE | 2020-09-22 19:01 | NUR ---
HEARD PATIENT YELLING AND SWEARING AT DEATH SURVEYS CODER IN HIS ROOM. THE PATIENT WAS DEMANDING FOOD. I ENTERED AND ATTEMPTED TO TALK TO THE PATIENT THAT I WAS GIVING HIM LIQUIDS UNTIL SPEECH COULD EVALUATE HIM. I SPOKE TO HIM ABOUT ASPIRATION AND THE RISK FROM ASPIRATING FOOD. I STATED WE WANT TO MAKE SURE HE IS SAFE SWALLOWING AND NOT RISKING FURTHER ISSUES. HE BEGAN TO SWEAR AT ME AND TOLD ME "THIS IS BULLSHIT, I AM LEAVING". I TRIED TO TALK TO HIM ABOUT THE RISKS OF LEAVING FOR HIS FOOT AND OF ASPIRATION. HE CUT ME OFF AND CONTINUED TO SWEAR AT ME. NOTIFIED NURSING GENERATOR ASSEMBLER. PT REFUSED TO SIGN AN AMA FORM AND YELLED THAT HE WAS LEAVING. CURRENTLY HE IS MAKING A PHONE CALL TO GET A RIDE HOME. HE ALLOWED THIS RN TO REMOVE HIS IV.
--- NOTE | 2020-09-22 19:25 | NUR ---
SPOKE WITH PATIENT AGAIN AT LENGTH ABOUT RISKS OF LEAVING AMA. SPOKE TO HIM ABOUT SPEECH THERAPY EVALUATING HIM TO MAKE SURE HE SWALLOWS SAFELY. SPOKE WITH HIM REGARDING ENSURE FOR NUTRITION AND THAT WE ARE NOT ATTEMPTING TO STARVE HIM. HE AGREED TO STAY AND THINKS THE DIETITIAN WOULD BE BENEFICIAL FOR HIM HE DISCHARGES. AT THIS TIME HE IS SITTING IN A CHAIR AND AGREEABLE TO STAY. HE HAS BEEN NON COMPLIANT WITH WEIGHT BEARING STATUS TODAY.
[2020-09-23 04:28] LABS: BASOPHILS ABSOLUTE AUTO 0.08 K/mm3 (0.00-0.23); BASOPHILS PERCENT AUTO 1 % (0-2); EOSINOPHILS ABSOLUTE AUTO 0.17 K/mm3 (0.00-0.68); EOSINOPHILS PERCENT AUTO 2 % (0-6); Hematocrit 36.9 % (37.0-53.0); IMMATURE GRAN ABSOLUTE AUTO 0.02 K/mm3 (0.00-0.10); IMMATURE GRAN PERCENT AUTO 0 % (0-1); LYMPHOCYTES PERCENT AUTO 18 % (21-46); MONOCYTES ABSOLUTE AUTO 0.71 K/mm3 (0.16-1.47); MONOCYTES PERCENT AUTO 8 % (4-13); Mean Corpuscular HGB 29.1 pg (26.0-34.0); Mean Corpuscular HGB Conc 32.5 g/dL (31.5-36.5); Mean Corpuscular Volume 89 fL (80-100); Mean Platelet Volume 9.3 fL (9.1-12.4); NEUTROPHILS ABSOLUTE AUTO 5.97 K/mm3 (1.96-9.15); NEUTROPHILS PERCENT AUTO 71 % (41-73); Platelet Count 228 K/mm3 (150-400); RDW Coefficient Variation 14.1 % (11.7-14.2); RDW Standard Deviation 45.7 fL (35.1-46.3); Red Blood Cell Count 4.13 M/mm3 (4.30-5.90); White Blood Cell Count 8.45 K/mm3 (4.00-11.30)
--- NOTE | 2020-09-23 04:31 | NUR ---
SHIFT SUMMARY: PT POD#1 FOR AMPUTATION OF SECOND TOE ON RIGHT FOOT. PT HAS BEEN PLEASANT, COOPERATIVE AND APPRECIATIVE OF CARE THIS SHIFT. A&O X4. VS WNL. O2 STABLE ON RA. GAVIN WRAP DRESSING C/D/I WITHOUT VISIBLE DRG. PT ABLE TO WIGGLE REMAINING TOES ON RIGHT FOOT. CAP REFILL WNL. PAIN BEING MANAGED WITH PERCOCET PER EMAR. MEDICATED ONCE THIS SHIFT. POSTOP SHOE AT BEDSIDE. PT HAS BEEN COMPLIENT WITH WEIGHT BEARING STATUS T/O NIGHT. VOIDING ADEQUATE AMOUNT IN URINAL. URINE LIGHT YELLOW. IVF INFUSING PER ORDERS. PT TOLERATING PO. AWAITING SPEECH EVALUATION. PLAN FOR PT/OT/ST.
[2020-09-23 04:55] LABS: Albumin, Blood 2.7 g/dL (3.4-5.0); Albumin/Globulin Ratio 0.7 (0.8-1.8); Bilirubin, Total 0.3 mg/dL (0.1-1.0); Calcium, Blood 8.1 mg/dL (8.5-10.1); Creatinine, Blood 1.5 mg/dL (0.60-1.20); Globulin, Blood 3.8 g/dL (2.2-4.0); Potassium, Blood 4.4 mmol/L (3.5-5.5); Total Protein, Blood 6.5 g/dL (6.4-8.2)
[2020-09-23] MEDS ORDERED: Percocet 5-3251 EACH PO (13:12)
--- NOTE | 2020-09-23 13:47 | NUR ---
DISCHARGE NOTE: PATIENT WAS EDUCATED ON DISCHARGE INSTRUCTIONS. HE VERBALIZED UNDERSTANDING OF INSTRUCTIONS. PATIENT HAS HIS HARD PERSCRIPTIONS IN HIS INSTRUCTIONS FOLDER. HE IS ALERT AND ORIENTED X4. VS ARE WNL AND IS ON RA. PAIN IS CONTROLLED WITH PO PERCOCET. RIGHT FOOT IS GAVIN WRAPPED AND IS C/D/I. PATIENT IS ABLE TO WIGGLE FINGERS AND TOES. IV WAS TAKEN OUT AND WAS WNL. HE IS DRESSED AND WILL BE WHEELCHAIRED OUT TO BE PICKED UP BY A FRIEND NAMED JAYSHREE TO TAKE HIM BACK HOME. HE HAS BEEN VOIDING AND TOLERATING PO INTAKE.
== END 2020-09-23 13:35 | disposition home or self-care (01) | DRG 504 ==
LOC: ORSCMMR 06:09 → ORD 07:30 → ORSCMMR 08:38 → SURS 08:38
PROVIDERS: Nurse Practitioner Acute Care; Podiatrist Foot & Ankle Surgery; ADMIT Internal Medicine
PROC: 0Y6R0Z0 Detachment at Right 2nd Toe, Complete, Open Approach (ICD-10-PCS; principal; 2020-09-22 07:30)
DX: M86.671 Other chronic osteomyelitis, right ankle and foot (principal); N17.9 Acute kidney failure, unspecified; C78.7 Secondary malignant neoplasm of liver and intrahepatic bile duct; E86.0 Dehydration; I10 Essential (primary) hypertension; J44.9 Chronic obstructive pulmonary disease, unspecified; K21.9 Gastro-esophageal reflux disease without esophagitis; G62.9 Polyneuropathy, unspecified; F15.10 Other stimulant abuse, uncomplicated; F12.90 Cannabis use, unspecified, uncomplicated; C80.1 Malignant (primary) neoplasm, unspecified; F17.210 Nicotine dependence, cigarettes, uncomplicated; Z88.2 Allergy status to sulfonamides; Z79.899 Other long term (current) drug therapy; Z88.8 Allergy status to other drugs, medicaments and biological substances; Z59.0 Homelessness; Z90.89 Acquired absence of other organs; Z98.890 Other specified postprocedural states
CPT/HCPCS: 36415; 71045; 76770; 80053; 81003; 82550; 83735; 84100; 85025; 88305; 88311; 92610; 94760; 97110; 97116; 97162; A9270; J0690; J1644; J2250; J2704; J3010; J3475; J7030; J7120

== ENCOUNTER 2020-09-29 04:09 | Day surgery (SDC) | payer MEDICARE, OTHER | END 2020-09-29 23:59 | disposition home or self-care (01) | LOC: WOUND 04:09 | DX: L97.529 Non-pressure chronic ulcer of other part of left foot with unspecified severity (principal); L97.519 Non-pressure chronic ulcer of other part of right foot with unspecified severity; T81.89XD Other complications of procedures, not elsewhere classified, subsequent encounter; R21 Rash and other nonspecific skin eruption; L29.9 Pruritus, unspecified; G90.09 Other idiopathic peripheral autonomic neuropathy; Z89.421 Acquired absence of other right toe(s); M79.671 Pain in right foot; C22.8 Malignant neoplasm of liver, primary, unspecified as to type; Z88.1 Allergy status to other antibiotic agents | CPT/HCPCS: A9270; G0463 ==

== ENCOUNTER 2020-10-11 13:13 | Emergency (ER) | payer MEDICARE, OTHER ==
[~2020-10-11] VITALS: Ht 190.5 cm; Wt 59.0 kg
[2020-10-11 13:35] LABS: BASOPHILS ABSOLUTE AUTO 0.11 K/mm3 (0.00-0.23); BASOPHILS PERCENT AUTO 1 % (0-2); EOSINOPHILS ABSOLUTE AUTO 0.07 K/mm3 (0.00-0.68); EOSINOPHILS PERCENT AUTO 1 % (0-6); Hematocrit 44.3 % (37.0-53.0); IMMATURE GRAN ABSOLUTE AUTO 0.03 K/mm3 (0.00-0.10); IMMATURE GRAN PERCENT AUTO 0 % (0-1); LYMPHOCYTES ABSOLUTE AUTO 2.36 K/mm3 (0.84-5.20); LYMPHOCYTES PERCENT AUTO 26 % (21-46); MONOCYTES ABSOLUTE AUTO 0.49 K/mm3 (0.16-1.47); MONOCYTES PERCENT AUTO 5 % (4-13); Mean Corpuscular HGB 29.2 pg (26.0-34.0); Mean Corpuscular HGB Conc 33.9 g/dL (31.5-36.5); Mean Corpuscular Volume 86 fL (80-100); NEUTROPHILS ABSOLUTE AUTO 6.18 K/mm3 (1.96-9.15); NEUTROPHILS PERCENT AUTO 67 % (41-73); Platelet Count 328 K/mm3 (150-400); RDW Coefficient Variation 14.1 % (11.7-14.2); RDW Standard Deviation 44.3 fL (35.1-46.3); Red Blood Cell Count 5.13 M/mm3 (4.30-5.90); White Blood Cell Count 9.24 K/mm3 (4.00-11.30)
[2020-10-11 13:52] LABS: Alanine Aminotransfer (ALT/SGP 37 U/L (12-78); Albumin, Blood 3.2 g/dL (3.4-5.0); Albumin/Globulin Ratio 0.6 (0.8-1.8); Alk Phos 141 U/L (50-136); Anion Gap 13 mmol/L (6-16); Aspartate Aminotrans (AST/SGOT 50 U/L (12-37); Bilirubin, Total 1.2 mg/dL (0.1-1.0); Blood Urea Nitrogen 21 mg/dL (8-24); Bun/Creatinine Ratio 25.7 (12.0-20.0); CO2, Blood 17 mmol/L (21-32); Calcium, Blood 9.2 mg/dL (8.5-10.1); Chloride, Blood 101 mmol/L (98-108); Creatinine, Blood 0.82 mg/dL (0.60-1.20); Glomerular Filtration Rate >60 (60-); Glucose, Blood 55 mg/dL (70-99); Potassium, Blood 4.1 mmol/L (3.5-5.5); Sodium, Blood 131 mmol/L (136-145); Total Protein, Blood 8.2 g/dL (6.4-8.2)
[2020-10-11 15:24] LABS: Adenovirus F 40/41 Not Detected (NOT DETECT); Astrovirus Not Detected (NOT DETECT); Campylobacter Sp Not Detected (NOT DETECT); Cryptosporidium Not Detected (NOT DETECT); Cyclospora Cayetanensis Not Detected (NOT DETECT); E. Coli O157 Not Detected (NOT DETECT); Entamoeba Histolytica Not Detected (NOT DETECT); Enteroaggregative E. coli-EAEC Not Detected (NOT DETECT); Enteropathogenic E. coli-EPEC Detected (NOT DETECT); Enterotoxigenic E. coli-ETEC Not Detected (NOT DETECT); Giardia Lamblia Not Detected (NOT DETECT); Norovirus GI/GII Not Detected (NOT DETECT); Plesiomonas Shigelloides Not Detected (NOT DETECT); Rotavirus A Not Detected (NOT DETECT); Salmonella Sp Not Detected (NOT DETECT); Sapovirus Not Detected (NOT DETECT); Shiga Toxin-prod E. coli-STEC Not Detected (NOT DETECT); Shigella/Enteroin E. coli-EIEC Not Detected (NOT DETECT); Vibrio Cholerae Not Detected (NOT DETECT); Vibrio Sp Not Detected (NOT DETECT); Yersinia Enterocolitica Not Detected (NOT DETECT)
[2020-10-11] MEDS ORDERED: CIPR500 PO (16:05)
== END 2020-10-11 18:29 | disposition home or self-care (01) ==
LOC: ER 13:13
PROVIDERS: Emergency Medicine
DX: A04.0 Enteropathogenic Escherichia coli infection (principal); E86.0 Dehydration; R19.7 Diarrhea, unspecified; Z79.899 Other long term (current) drug therapy
CPT/HCPCS: 0097U; 80053; 83690; 85025; 93005; 93010; 96361; 96374; 96375; 99285-25; A9270; J1885; J2405; J7120